=== PATIENT | male | born 1985 | race American Indian/Alaskan Native ===

== ENCOUNTER 2018-11-23 03:30 | Emergency (ER) | payer SELFPAY ==
[2018-11-23 03:41] VITALS: BP 141/100
[2018-11-23] MEDS ORDERED: SODIUM CHLORIDE 0.9% 1000 ML 1,000 ML IV ONE (04:18)
[2018-11-23] MEDS ORDERED: KETOROLAC 30 MG/1 ML INJ IV ONE (04:18)
[2018-11-23] MEDS ORDERED: ONDANSETRON 4 MG/2 ML INJ IV ONE (04:18)
[2018-11-23 05:12] LABS: Basophils # (Auto) 0.1 K/mm3 (0.0-0.1); Basophils % (Auto) 1.3 % (0.0-1.8); Eosinophils # (Auto) 0.1 K/mm3 (0.0-0.4); Eosinophils % (Auto) 1.2 % (0.0-4.3); Hematocrit 48.1 % (35.5-45.6); Hemoglobin 16.2 gm/dl (11.8-15.2); Lymphocytes # (Auto) 2.3 K/mm3 (1.2-5.4); Lymphocytes % (Auto) 39.2 % (13.4-35.0); Mean Corpuscular HGB Conc 34 % (32-34); Mean Corpuscular Volume 92 fl (84-94); Monocytes # (Auto) 0.6 K/mm3 (0.0-0.8); Monocytes % (Auto) 10.6 % (0.0-7.3); Platelet Count 156 K/mm3 (140-440); Red Blood Count 5.25 M/mm3 (3.65-5.03); Red Cell Distribution Width 14.4 % (13.2-15.2)
[2018-11-23] MEDS ORDERED: MORPHINE 4 MG/1 ML INJ IV ONE (05:28)
[2018-11-23] MEDS ORDERED: METOCLOPRAMIDE 10 MG/2 ML INJ IV ONE (05:28)
[2018-11-23 05:34] LABS: Alanine Aminotransferase 68 units/L (7-56); Albumin 4.3 g/dL (3.9-5); BUN/Creatinine Ratio 9; Blood Urea Nitrogen 9 mg/dL (9-20); Calcium 9.5 mg/dL (8.4-10.2); Hemolysis Index 35
--- NOTE | 2018-11-23 05:55 | Cat Scan Report ---
CT ABDOMEN AND PELVIS WITHOUT CONTRAST INDICATION / CLINICAL INFORMATION: Left flank pain - Kidney stones. TECHNIQUE: Axial CT images were obtained through the abdomen and pelvis without IV contrast. All CT scans at [facility] location are performed using CT dose reduction for ALARA by means of automated exposure control. COMPARISON: None available. FINDINGS: LOWER CHEST: Calcified granuloma in the right lower lobe and right hilum. LIVER: No significant abnormality. GALLBLADDER: No significant abnormality. BILE DUCTS: No significant abnormality. PANCREAS: No significant abnormality. SPLEEN: Calcified granulomas. ADRENALS: No significant abnormality. RIGHT KIDNEY and URETER: No significant abnormality. LEFT KIDNEY and URETER: No significant abnormality. STOMACH and SMALL BOWEL: No significant abnormality. COLON: No significant abnormality. APPENDIX: No significant abnormality. PERITONEUM: No free fluid. No free air. No fluid collection. LYMPH NODES: No significant adenopathy. AORTA and ARTERIES: No significant abnormality. IVC and VEINS: No significant abnormality. URINARY BLADDER: No significant abnormality. REPRODUCTIVE ORGANS: No significant abnormality. ADDITIONAL FINDINGS: None. SKELETAL SYSTEM: No significant abnormality. IMPRESSION: 1. No nephrolithiasis or hydronephrosis identified. Signer Name: Joanna Aguilar MD Signed: 11/23/2018 5:50 AM Workstation Name: [id number]
[2018-11-23 06:03] LABS: Bilirubin,Urine NEG (Negative); Blood,Urine NEG (Negative); Color,Urine Straw (Yellow); Mucus,Urine FEW /HPF; Protein,Urine <15 mg/dL mg/dL (Negative); RBC,Urine < 1.0 /HPF (0.0-6.0); Urobilinogen,Urine < 2.0 mg/dL (<2.0)
--- NOTE | 2018-11-23 06:10 | Emergency Department Report ---
ED Abdominal Pain HPI - General Chief Complaint: Abdominal Pain Stated Complaint: KIDNEY STONE PAIN Source: patient Mode of arrival: Ambulatory Limitations: No Limitations - History of Present Illness Initial Comments: Patient is a 33-year-old -[place] male with a history of chronic kidney stones who presents to the ED with acute onset onset persistent severe left flank pain with nausea and vomiting for the last 2 days. Patient states that the last time he vomited was over 12 hours ago. Patient states that he was recently treated for kidney stones on the left flank at a local hospital emergency department in [place] on 11/15/2018 and states that he is [employer] in [facility] for work. Patient states that he has an appointment with his urologist in the [place] on 12/08/2018. Patient states that the pain has been persistent and that in the last 6 hours he has not been able to sleep because of severe left flank pain and suspects that he may be passing another kidney stone. Patient denies dizziness, fever, chills, hematuria, testicular pain, dysuria, cough, chest pain, shortness of breath, diarrhea, low back pain or penile discharge. MD Complaint: abdominal pain, flank pain (left) -: Sudden, days(s) (2) Location: LLQ, L flank Radiation: none Migration to: no migration Severity: severe Severity scale (0 -10): 10 Quality: cramping, aching, sharp Consistency: constant Improves With: nothing Worsens With: nothing Context: other (chronic kidney stones history) Associated Symptoms: denies other symptoms, nausea, vomiting. denies: diarrhea, fever, chills, dysuria, hematemesis, hematochezia, melena, anorexia, syncope, other - Related Data Allergies Allergy/AdvReac Type Severity Reaction Status Date / Time No Known Allergies Allergy Unverified 11/23/18 03:45 ED Review of Systems ROS: Stated complaint: KIDNEY STONE PAIN Other details as noted in HPI Constitutional: denies: chills, fever Eyes: denies: eye pain, eye discharge, vision change ENT: denies: ear pain, throat pain Respiratory: denies: cough, shortness of breath, wheezing Cardiovascular: denies: chest pain, palpitations Endocrine: no symptoms reported Gastrointestinal: abdominal pain, nausea, vomiting. denies: diarrhea Genitourinary: denies: urgency, dysuria Musculoskeletal: denies: back pain, joint swelling, arthralgia Skin: denies: rash, lesions Neurological: denies: headache, weakness, paresthesias Psychiatric: denies: anxiety, depression Hematological/Lymphatic: denies: easy bleeding, easy bruising ED Past Medical Hx - Past Medical History Previous Medical History?: Yes Hx Kidney Stones: Yes - Surgical History Past Surgical History?: No - Social History Smoking Status: Former Smoker Substance Use Type: None ED Physical Exam - General Limitations: No Limitations General appearance: alert, in no apparent distress - Head Head exam: Present: atraumatic, normocephalic, normal inspection - Eye Eye exam: Present: normal appearance, PERRL, EOMI Pupils: Present: normal accommodation - ENT ENT exam: Present: normal exam, normal orophraynx, mucous membranes moist, TM's normal bilaterally, normal external ear exam - Neck Neck exam: Present: normal inspection, full ROM - Respiratory Respiratory exam: Present: normal lung sounds bilaterally. Absent: respiratory distress, wheezes, rales, rhonchi, chest wall tenderness, accessory muscle use, decreased breath sounds - Cardiovascular Cardiovascular Exam: Present: regular rate, normal rhythm. Absent: systolic murmur, diastolic murmur, rubs, gallop - GI/Abdominal GI/Abdominal exam: Present: soft, tenderness (Palpable left flank tenderness), normal bowel sounds - Rectal Rectal exam: Present: deferred - Extremities Exam Extremities exam: Present: normal inspection, full ROM, normal capillary refill - Back Exam Back exam: Present: normal inspection, full ROM. Absent: muscle spasm, paraspinal tenderness - Neurological Exam Neurological exam: Present: alert, oriented X3, CN II-XII intact, normal gait, reflexes normal - Psychiatric Psychiatric exam: Present: normal affect, normal mood - Skin Skin exam: Present: warm, dry, intact, normal color. Absent: rash ED Course Vital Signs 11/23/18 03:39 Temperature 98.3 F Pulse Rate 89 Respiratory 20 Rate Blood Pressure 141/100 O2 Sat by Pulse 98 Oximetry - Reevaluation(s) Reevaluation #1: 11/23/18 06:10 This 33-year-old male with a history of kidney stone presented to the ED with left flank pain for 2 days. In the ED, patient is alert and oriented 3 and is not in distress but appears to be in pain. Patient was treated for pain in the ED and also received normal saline 1 L IV bolus 1. Lab test results show hyperglycemia of 285 mg/dL and elevated ALT of 68. The rest of the lab test results are nonactionable. Abdomen pelvis CT scan without contrast shows no acute abnormality, no acute stones or hydronephrosis. On reevaluation, patient's pain is well controlled with medications. Patient symptoms are likely due to muscle spasm with left lower back or if kidney stones then he may have passed the stones prior to arrival in the ED. Patient was discharged home on medications for pain and advised to follow-up with his primary care physician in 7-10 days for reevaluation. ED Medical Decision Making - Lab Data Result diagrams: 11/23/18 04:45 11/23/18 04:45 - Radiology Data Radiology results: report reviewed, image reviewed Abdomen pelvis CT scan without contrast shows no kidney stones or hydronephrosis, or any acute abnormality. Critical care attestation.: If time is entered above; I have spent that time in minutes in the direct care of this critically ill patient, excluding procedure time. ED Disposition Clinical Impression: Acute abdominal pain in left flank Disposition: DC-01 TO HOME OR SELFCARE Is pt being admited?: No Does the pt Need Aspirin: No Condition: Stable Instructions: Flank Pain (ED) Additional Instructions: Take medication with food, drink plenty of fluids and follow-up with your primary care physician in 7-10 days for reevaluation. Return to the ED immediately if symptoms get worse. Referrals: HOWARD TREVINO MD [Primary Care Provider] - 3-5 Days
== END 2018-11-23 06:27 | disposition home or self-care (01) ==
LOC: ED 03:30
DX: R10.9 Unspecified abdominal pain (principal); R11.2 Nausea with vomiting, unspecified; Z87.442 Personal history of urinary calculi; Z87.891 Personal history of nicotine dependence
CPT/HCPCS: 36415; 74176; 80053; 81001; 83690; 85025; 96361; 96374; 96375; 99284; J1885; J2270; J2405; J2765; J7030